=== PATIENT | female | born 1925 | race African-American/Black ===

== ENCOUNTER 2017-03-24 09:52 | Outpatient (CLI) ==
[2016-05-28 21:23] VITALS: BMI 30.4
== END 2017-03-24 09:53 | disposition home or self-care (01) ==
LOC: RAD 09:52
PROVIDERS: ATTEND Internal Medicine
DX: Z12.31 Encounter for screening mammogram for malignant neoplasm of breast (principal)
CPT/HCPCS: 77067

== ENCOUNTER 2017-03-28 19:10 | Emergency (ER) ==
[2017-03-28 19:10] VITALS: BMI 30.4
[2017-03-28 19:14] VITALS: BP 112/60; TEMP 97.7
--- NOTE | 2017-03-28 19:29 | ED.PDOC ---
General ED Provider: Dr. ABY SPRING Chief Complaint: Hip Pain/Injury Stated Complaint: Patient satys at home by herself, she tried to get out from the chair she suddenley had severe pain in the left hip and not able to stand, so she called 911 and came for the evlaution. Time Seen by Physician: 19:27 Mode of Arrival: Ambulance Information Source: Patient, EMT Primary Care Provider: SYLVIE HOLDEN Nursing and Triage Documentation Reviewed and Agree: Yes Musculoskeletal Complaint Exam - Hip/Pelvis Complaint/Exam Location of Pain: Reports: Left, Hip Mechanism of Injury: Reports: No known trauma Symptoms Are: Still present Initial Severity: Moderate Current Severity: Moderate Location: Reports: Discrete Character: Reports: Aching, Throbbing Aggravating: Reports: Movement Alleviating: Reports: None Associated Signs and Symptoms: Denies: Swelling, Redness, Bruising, Fever, Weakness, Dizziness, Syncope, Abdominal pain, Knee pain Related History: Reports: Similar episode Able to Bear Weight: No Septic Arthritis Risk Factors: Reports: None Related Surgical History: Reports: None Pelvis Palpation: Stable Range of Motion Limited In: Present: Flexion, Extension, Abduction, Adduction Differential Diagnoses: Fracture, Sprain Review of Systems - Review Of Systems Constitutional: Reports: No symptoms Eyes: Reports: No symptoms Ears, Nose, Mouth, Throat: Reports: No symptoms Respiratory: Reports: No symptoms Cardiac: Reports: No symptoms GI: Reports: No symptoms : Reports: No symptoms Musculoskeletal: Reports: Joint pain Skin: Reports: No symptoms Neurological: Reports: No symptoms Endocrine: Reports: No symptoms Hematologic/Lymphatic: Reports: No symptoms All Other Systems: Reviewed and Negative Past Medical History - Past Medical History Previously Healthy: Yes Endocrine: Reports: Dyslipidemia Cardiovascular: Reports: CAD, Hypertension Respiratory: Reports: None Hematological: Reports: None Gastrointestinal: Reports: None Genitourinary: Reports: None Neuro/Psych: Reports: None Musculoskeletal: Reports: Arthritis Cancer: Reports: None Last Menstrual Period: YEARS - Surgical History General Surgical History: Reports: Hysterectomy, Cholecystectomy - Family History Family History: Reports: Unknown - Social History Smoking Status: Never smoker Hx Substance Use: No Alcohol Screening: None - Immunizations Tetanus Shot up to Date: Yes Physical Exam - Physical Exam Appearance: Ill-appearing, Obese Pain Distress: Moderate Eyes: JEFF, EOMI, Conjunctiva clear ENT: Ears normal, Nose normal, Oropharynx normal Respiratory: Airway patent, Breath sounds clear, Breath sounds equal, Respirations nonlabored Cardiovascular: RRR, Pulses normal, No rub, No murmur GI/: Soft, Nontender, No masses, Bowel sounds normal, No Organomegaly Musculoskeletal: Limited ROM, Limited strength Skin: Warm, Dry, Normal color Neurological: Sensation intact, Motor intact, Reflexes intact, Cranial nerves intact, Alert, Oriented Psychiatric: Affect appropriate, Mood appropriate Interpretation - Radiology Interpretation Radiology Interpretation By: Radiologist Radiology Results: Positive (aneurysm) Exam Interpreted: CT Scan Critical Care Note - Critical Care Note Total Time (mins): 30 Course - Course Orders, Labs, Meds: Orders Category Date Time Status Ketorolac Tromethamine [Toradol] MEDS 03/28/17 19:23 Discontinued 60 mg IM ONCE STA CT ABDOMEN/PELVIS WO CONTRAST Stat RADS 03/28/17 20:[address] HIP RIGHT WITHOUT CONTRAST Stat RADS 03/28/17 19:[address] PELVIS W/O CONTRAST Stat RADS 03/28/17 19:23 Completed Medications Discontinued Medications Generic Name Dose Route Start Last Admin Trade Name Freq PRN Reason Stop Dose Admin Ketorolac Tromethamine 60 mg 03/28/17 19:23 03/28/17 19:39 Toradol IM 03/28/17 19:24 60 mg ONCE STA Administration Vital Signs: Temp Pulse Resp BP Pulse Ox 03/28/17 19:11 97.7 F 54 L 22 112/60 98 Departure - Departure Time of Disposition: 21:13 Disposition: HOME SELF-CARE Discharge Problem: Hip pain Instructions: Hip Pain (ED) Condition: Good Pt referred to PMD for follow-up: Yes Additional Instructions: discussed with family about the aneurysm. 2 daughters were in the room. patient was able to walk and did not had any pain in the right hip needs f/u with Dr Holden in 3-4 days Prescriptions: Hydrocodone/Acetaminophen [[place] 5-325 Tablet] 1 tab PO BID #10 tablet Prednisone 10 mg PO BIDWM #14 tablet Allergies/Adverse Reactions: Allergies No Known Allergies Allergy (Verified 05/28/16 15:40) Home Medications: Ambulatory Orders Aspirin [Aspirin EC] 81 mg PO DAILYWM 06/11/13 Levothyroxine Sodium [Synthroid] 88 mcg PO QDAC 06/11/13 Potassium Chloride [K-Tab ER] 10 meq PO DAILY #30 tablet.er 06/15/13 Furosemide [Lasix Tab] 20 mg PO DAILY 04/25/16 Losartan Potassium 100 mg PO DAILY 04/25/16 Carbamazepine 150 mg PO BID 04/26/16 Sotalol HCl [Sotalol] 80 mg PO BID 04/26/16 Amlodipine Besylate [Norvasc] 5 mg PO BID #30 tablet 04/28/16 Hydralazine HCl 25 mg PO DAILY 05/28/16 Hydrocodone/Acetaminophen [[place] 5-325 Tablet] 1 tab PO BID #10 tablet 03/28/17 Prednisone 10 mg PO BIDWM #14 tablet 03/28/17 Disposition Discussed With: Patient, Family
[2017-03-28] MEDS: TORADOL IM STA (19:39)
--- NOTE | 2017-03-28 20:23 | CT ---
EXAM: CT bony pelvis without contrast. HISTORY: Right hip pain. TECHNIQUE: Multi-slice transaxial helical CT. Coronal and sagital reformations were performed. COMPARISON: CT right hip from same day. FINDINGS: No evidence of displaced pelvic fracture is seen. There is mild to moderate bilateral hip joint spac e narrowing with prominent marginal osteophytes and subchondral cysts. Osteitis pubis is present. B ilateral sacroiliac joint osteoarthritis is present. There is moderate to advanced multilevel degene rative changes of the lumbar spine partially imaged. The bones are osteopenic. Partially imaged is an infrarenal abdominal aortic aneurysm that measures at least up to 47 x 41 mm. This is only partially imaged. The urinary bladder is not well distended. The uterus has been remov ed. No evidence of subcutaneous contusion is seen. IMPRESSION: 1. No acute displaced pelvic fracture. 2. Bilateral hip, SI joint, and pubic symphysis osteoarthritis. 3. Osteopenia. 4. Partially imaged infrarenal abdominal aortic aneurysm measuring up to at least 47 mm.
--- NOTE | 2017-03-28 20:26 | CT ---
EXAM: CT bony right hip. HISTORY: Right hip pain. TECHNIQUE: Multi-slice transaxial helical CT. Coronal and sagital reformations were performed. COMPARISON: CT pelvis from same day. FINDINGS: No evidence of displaced pelvic fracture is seen. There is mild to moderate right hip joint space na rrowing with prominent marginal osteophytes and subchondral cysts. Osteitis pubis is present. Right sacroiliac joint osteoarthritis is present. There is moderate to advanced multilevel degenerative ch anges of the lumbar spine partially imaged. The bones are osteopenic. This is only partially imaged. The urinary bladder is not well distended. The uterus has been donna carter. No evidence of subcutaneous contusion is seen. IMPRESSION: 1. No acute displaced right hip fracture. 2. Osteoarthritis. 3. Osteopenia.
--- NOTE | 2017-03-28 21:02 | CT ---
EXAM: CT abdomen and pelvis without contrast. HISTORY: Abdominal pain. TECHNIQUE: Multi-slice transaxial helical CT. Coronal and sagittal reformatons were performed. COMPARISON: CT of the pelvis from same day. FINDINGS: The heart is on the upper limits of normal in size. Multiple small sub centimeter pulmonary nodules a re seen throughout the lung bases. These are not significantly changed since the prior CT chest 07/02. Right middle lobe airway thickening and bronchiectasis is present. No evidence of pleural ef fusion is seen. Evaluation of the solid organs is limited without IV contrast. The gallbladder has been removed. Th e spleen is normal in size. There is no hydronephrosis or renal calculus. There is no intrahepatic biliary ductal dilation. The pancreas is mildly atrophic. Bilateral adrenal glands appear grossly u nremarkable. The bowel is not dilated. Again seen is the infrarenal abdominal aortic aneurysm which measures appro ximately 48 x 46 mm in size. A small hiatal hernia is present. Urinary bladder is not well distende d. The uterus has been removed. Appendix is not clearly identified. No evidence of free fluid with in the abdomen or pelvis is seen. Calcified plaques are also present within the abdominal aorta. No evidence of retroperitoneal adenopathy is seen. Multilevel degenerative changes of the lumbar spine are present. See same day pelvic CT for pelvic bony findings. IMPRESSION: 1. No acute abdominal findings. 2. No bowel obstruction, hydronephrosis, or intra-abdominal inflammation. 3. Infrarenal abdominal aortic aneurysm measuring up to 48 mm. 4. Numerous bibasilar sub centimeter pulmonary nodules which appear grossly similar to 2014. Recomm end an outpatient CT of the chest for better evaluation of the complete lungs. 5. Right middle lobe bronchitis. 6. Small hiatal hernia. 7. Multiple other senescent changes as above.
== END 2017-03-28 22:10 | disposition home or self-care (01) ==
LOC: ED 19:10
DX: M25.552 Pain in left hip (principal); I71.4 Abdominal aortic aneurysm, without rupture; R53.1 Weakness; R00.1 Bradycardia, unspecified
CPT/HCPCS: 96372; 99284